=== PATIENT | female | born 1980 | race Caucasian/White ===

== ENCOUNTER 2023-10-12 06:48 | Emergency (ER) | payer BC, OTHER ==
[~2023-10-12] VITALS: Ht 175.3 cm; Wt 64.1 kg
[~2023-10-12 06:48] MED LIST: ASCO500C18 PO; ATEN25TA PO; CALC-995 PO; CHOL100046 PO; CIME200T95 PO; CRAN200C PO; IBUP-1984 PO; LACT1CAP65 PO; LACT1CAP77 PO; MAGN400C PO; MULT-620 PO; MULT-687 PO; OMEP-84 PO; UBID10CA9 PO; UBID30CA11 PO; VITA100T5 PO; VITC500T PO; VITE1000C PO
[2023-10-12 06:59] VITALS: TEMP 98.1
[2023-10-12 07:17] LABS: BASOPHILS % (AUTO) 0.3 % (0-1); EOSINOPHILS # (AUTO) 0.2 X10'3 (0-0.9); EOSINOPHILS % (AUTO) 3.3 % (0-6); HEMATOCRIT 40.2 % (35.0-45.0); HEMOGLOBIN 13.6 g/dl (12.0-16.0); LYMPHOCYTES # (AUTO) 1.8 X10'3 (1.1-4.8); LYMPHOCYTES % (AUTO) 35.3 % (21-51); MEAN CORPUSCULAR HEMOGLOBIN 30.6 PG (27.0-31.0); MEAN CORPUSCULAR HGB CONC 33.9 g/dL (33.0-36.5); MEAN CORPUSCULAR VOLUME 90.3 FL (78-98); MEAN PLATELET VOLUME 8.1 FL (7.4-10.4); MONOCYTES # (AUTO) 0.4 X10'3 (0-0.9); MONOCYTES % (AUTO) 8.6 % (2-12); NEUTROPHILS # (AUTO) 2.7 X10'3 (1.8-7.7); NEUTROPHILS % (AUTO) 52.5 % (42-75); PLATELET COUNT 210 X10'3 (140-440); RED BLOOD COUNT 4.45 X10'6 (4.20-5.60); RED CELL DISTRIBUTION WIDTH 13.9 % (11.5-14.5); WHITE BLOOD COUNT 5.2 X10'3 (4.5-11.0)
[2023-10-12 07:38] LABS: ALANINE AMINOTRANSFERASE 30 U/L (12-78); ALBUMIN 3.9 G/DL (3.4-5.0); ALBUMIN/GLOBULIN RATIO 1.1 (1.1-1.5); ALKALINE PHOSPHATASE 81 IU/L (46-116); ANION GAP 8 (8-16); ASPARTATE AMINO TRANSFERASE 26 U/L (10-37); BILIRUBIN,TOTAL 0.4 MG/DL (0.1-1.0); BLOOD UREA NITROGEN 10 MG/DL (7-18); BUN/CREATININE RATIO 12.3 (10.0-20.0); CALCIUM 8.7 MG/DL (8.5-10.1); CHLORIDE 104 MMOL/L (99-107); CREATININE 0.81 MG/DL (0.40-0.90); GLUCOSE 106 MG/DL (70-104); POTASSIUM 3.8 MMOL/L (3.5-5.1); SODIUM 140 MMOL/L (135-145); TOTAL CARBON DIOXIDE 27.8 MMOL/L (24-32); TOTAL PROTEIN 7.5 G/DL (6.4-8.2); eCRCL 89 ML/MIN; eGFR 76 ML/MIN
[2023-10-12 10:55] VITALS: BP 131/82; PULSE 75; RESP 18; O2SAT 100
== END 2023-10-12 10:56 | disposition home or self-care (01) ==
LOC: ER 06:49
DX: R00.2 Palpitations (principal); J45.909 Unspecified asthma, uncomplicated; K21.9 Gastro-esophageal reflux disease without esophagitis; Z90.49 Acquired absence of other specified parts of digestive tract; Z90.89 Acquired absence of other organs; Z98.890 Other specified postprocedural states; Z88.8 Allergy status to other drugs, medicaments and biological substances; Z79.899 Other long term (current) drug therapy
CPT/HCPCS: 36415; 71045; 80053; 83735; 84443; 84484; 85025; 93005; 99285

== ENCOUNTER 2025-07-10 11:15 | Outpatient (CLI) | payer MEDICAID ==
--- NOTE | 2025-07-10 12:35 | RADIOLOGY REPORT ---
EXAM: MR MRI LUMBAR SPINE CLINICAL HISTORY: [facility] SYMPTOMS AND SIGNS INVOLVING THE MUSCULOSKELETAL SYSTEM COMPARISON: None TECHNIQUE: MRI of the lumbar spine was performed without contrast. FINDINGS: Vertebral body height is maintained. Vertebral alignment is anatomic. Degenerate endplate changes with modic type 1 changes at T12-L1 and L4-5. The conus medullaris is normal in position and signal intensity. L1-L2: Disc bulge with annular fissure and facet arthropathy. No significant spinal canal or foraminal stenosis. L2-L3: Disc bulge with annular fissure and facet arthropathy. No significant spinal canal or foraminal stenosis. L3-L4: Disc bulge with facet arthropathy. Mild bilateral foraminal stenosis. No significant spinal canal narrowing. L4-L5: Disc bulge with facet arthropathy and ligamentum flavum thickening. Moderate left foraminal stenosis. No significant spinal canal narrowing. L5-S1: Disc bulge and facet arthropathy. No significant spinal canal or foraminal stenosis. No mass is identified within the lumbar spinal canal or paravertebral soft tissues. IMPRESSION: Multilevel degenerative changes of the lumbar spine. Moderate left foraminal stenosis at L4-5 and mild bilateral foraminal stenosis L3-No significant spinal canal stenosis. Modic type 1 endplate changes.
== END 2025-07-10 23:59 | disposition home or self-care (01) ==
LOC: MRI02 11:15
PROVIDERS: ATTEND Nurse Practitioner
DX: M50.323 Other cervical disc degeneration at C6-C7 level (principal); R29.898 Other symptoms and signs involving the musculoskeletal system; M48.02 Spinal stenosis, cervical region; M25.78 Osteophyte, vertebrae; L72.3 Sebaceous cyst
CPT/HCPCS: 72148